=== PATIENT | female | born 1995 | race Caucasian/White ===

== ENCOUNTER 2019-01-31 09:02 | Outpatient (CLI) | payer OTHER | END 2019-01-31 09:12 | disposition home or self-care (01) | LOC: SONOGRAMA 09:02 | DX: E04.1 Nontoxic single thyroid nodule (principal) ==

== ENCOUNTER 2019-06-05 07:54 | Outpatient (CLI) | payer OTHER | END 2019-06-05 09:33 | disposition home or self-care (01) | LOC: SONOGRAMA 07:54 | DX: E04.1 Nontoxic single thyroid nodule (principal) ==

== ENCOUNTER 2020-10-25 12:00 | Emergency (ER) | payer OTHER ==
[~2020-10-25] VITALS: Ht 165.1 cm; Wt 77.1 kg
[2020-10-25] MEDS ORDERED: SYNTHROID50 MCG (12:06)
[2020-10-25] MEDS ORDERED: NORFLEX100MG PO (13:58)
[2020-10-25] MEDS ORDERED: KETO10TA2 PO (13:58)
== END 2020-10-25 14:03 | disposition home or self-care (01) ==
LOC: ER 12:00
DX: M54.6 Pain in thoracic spine (principal); M54.5 Low back pain

== ENCOUNTER 2021-08-19 11:38 | Emergency (ER) | payer OTHER ==
[~2021-08-19] VITALS: Ht 165.1 cm; Wt 86.6 kg
[~2021-08-19 11:38] MED LIST: KETO10TA2 PO; NORFLEX100MG PO; SYNTHROID50 MCG
[2021-08-19] MEDS ORDERED: SYNTHROID88 MCG PO (12:01)
[2021-08-19] MEDS ORDERED: PRENATAL + DHA1 EAC1 (12:01)
[2021-08-19] MEDS ORDERED: ZITHROMAX500 MG PO (16:36)
[2021-08-19] MEDS ORDERED: MUCINEX DM ER1 EAC1 PO (16:36)
== END 2021-08-19 17:36 ==
LOC: ER 11:38
DX: J06.9 Acute upper respiratory infection, unspecified (principal); Z03.818 Encounter for observation for suspected exposure to other biological agents ruled out

== ENCOUNTER 2021-09-29 06:17 | Outpatient (CLI) | payer OTHER ==
[~2021-09-29 06:17] MED LIST changes: +MUCINEX DM ER1 EAC1 PO; +PRENATAL + DHA1 EAC1; +SYNTHROID88 MCG PO; +ZITHROMAX500 MG PO
== END 2021-09-29 06:18 | disposition home or self-care (01) ==
LOC: LAB 06:17
PROVIDERS: ATTEND Obstetrics & Gynecology
DX: E03.8 Other specified hypothyroidism (principal); C73 Malignant neoplasm of thyroid gland; O09.72 Supervision of high risk pregnancy due to social problems, second trimester

== ENCOUNTER → 2021-12-01 08:32 | Outpatient (CLI) | payer OTHER | END | disposition home or self-care (01) | LOC: LAB 08:32 | PROVIDERS: ATTEND Obstetrics & Gynecology | DX: Z34.83 Encounter for supervision of other normal pregnancy, third trimester (principal) ==

== ENCOUNTER 2021-12-03 13:00 | Outpatient (CLI) | payer OTHER | END 2021-12-03 13:07 | disposition home or self-care (01) | LOC: SONOGRAMA 13:00 | DX: E04.1 Nontoxic single thyroid nodule (principal); C73 Malignant neoplasm of thyroid gland ==

== ENCOUNTER 2022-01-09 09:48 | Outpatient (CLI) | payer OTHER | END 2022-01-09 10:28 | disposition home or self-care (01) | LOC: NST 09:48 | PROVIDERS: ATTEND Obstetrics & Gynecology Maternal & Fetal Medicine | DX: Z34.83 Encounter for supervision of other normal pregnancy, third trimester (principal) ==

== ENCOUNTER 2022-01-13 08:56 | Outpatient (CLI) | payer OTHER | END 2022-01-13 09:34 | disposition home or self-care (01) | LOC: NST 08:56 | PROVIDERS: ATTEND Obstetrics & Gynecology | DX: Z34.83 Encounter for supervision of other normal pregnancy, third trimester (principal) ==

== ENCOUNTER 2022-04-08 11:49 | Outpatient (CLI) | payer OTHER | END 2022-04-08 12:06 | disposition home or self-care (01) | LOC: EDSEX 11:49 → EDBD 11:49 → LAB 11:49 | PROVIDERS: ATTEND Pediatrics | DX: R19.7 Diarrhea, unspecified (principal) ==

== ENCOUNTER 2024-08-17 13:54 | Emergency (ER) | payer OTHER ==
[~2024-08-17] VITALS: Ht 83.8 cm; Wt 10.9 kg
== END 2024-08-17 20:00 | disposition home or self-care (01) ==
LOC: EMR PED 13:56 → ER 13:56 → EMR PED 16:02
DX: J00 Acute nasopharyngitis [common cold] (principal); Z20.822 Contact with and (suspected) exposure to COVID-19; Z91.018 Allergy to other foods

== ENCOUNTER 2025-08-03 19:32 | Emergency (ER) | payer OTHER ==
[~2025-08-03] VITALS: Ht 88.9 cm; Wt 12.2 kg
[2025-08-03] MEDS ORDERED: 0.9 % SODIUM CHLORIDE 500 ML IV ONE (21:00)
[2025-08-03] MEDS ORDERED: 0.9 % SODIUM CHLORIDE 500 ML IV SCH (21:00)
[2025-08-03] MEDS ORDERED: ACETAMINOPHEN 160MG/5 ML BLIST.PACK PO PRN (21:00)
[2025-08-03] MEDS ORDERED: CEFTRIAXONE SODIUM 1,000 MG VIAL IV ONE (21:15)
[2025-08-03 22:29] LABS: BASO % 0.2 % (0.1-1.2); EOS # 0.00 (0.04-0.54); EOS % 0.0 % (0.7-7.0); LYMPH # 2.05 (1.18-3.74); LYMPH % 16.7 % (19.3-53.1); MEAN PLATELET VOLUME 9.70 fl (9.4-12.4); MONO # 1.20 (0.24-0.82); MONO % 9.8 % (4.7-12.5); NEUT # 8.95 (1.56-6.13); NEUT % 72.9 % (34.0-71.1); RED CELL DISTRIBUTION WIDTH 13.2 % (11.6-14.4)
[2025-08-03 23:40] LABS: COVID-19 AG NEGATIVE (NEGATIVE)
[2025-08-03 23:52] LABS: URINE APPEARANCE Clear; URINE BACTERIA 29.9 uL (0.0-1933); URINE BILIRRUBIN Negative (NEGATIVE); URINE BLOOD Negative; URINE COLOR Yellow; URINE EPITHELIAL CELLS 2.4 uL (0.0-38.8); URINE GLUCOSE Negative (NEGATIVE); URINE LEUKOCYTE Negative; URINE NITRATE Negative; URINE PROTEIN Negative (NEGATIVE); URINE UROBILINOGEN 1.0 E.U./dl; URINE WBC 12.1 uL (0.0-23.2)
[2025-08-03 23:57] LABS: URINE CAST 0.00 uL (0.0-1.40); URINE KETONE 40 (NEGATIVE); URINE RBC 1.6 uL (0.0-20.8)
[2025-08-04 08:34] LABS: BASO % 0.1 % (0.1-1.2); EOS # 0.00 (0.04-0.54); EOS % 0.0 % (0.7-7.0); LYMPH # 2.77 (1.18-3.74); LYMPH % 23.8 % (19.3-53.1); MEAN PLATELET VOLUME 10.20 fl (9.4-12.4); MONO # 1.32 (0.24-0.82); MONO % 11.3 % (4.7-12.5); NEUT # 7.50 (1.56-6.13); NEUT % 64.5 % (34.0-71.1); RED CELL DISTRIBUTION WIDTH 13.1 % (11.6-14.4)
[2025-08-04] MEDS ORDERED: CEFTRIAXONE SODIUM 1,000 MG VIAL IV ONE (09:15)
[2025-08-04] MEDS ORDERED: AUGMENTIN600 MG/5 M PO (10:49)
== END 2025-08-04 12:14 | disposition home or self-care (01) ==
LOC: ER 19:32 → EMR PED 19:57
PROVIDERS: General Practice; Pediatrics
DX: J03.80 Acute tonsillitis due to other specified organisms (principal); Z91.018 Allergy to other foods; R50.9 Fever, unspecified; Z20.822 Contact with and (suspected) exposure to COVID-19

== ENCOUNTER 2025-08-14 20:58 | Emergency (ER) | payer OTHER ==
[~2025-08-14] VITALS: Ht 91.4 cm; Wt 12.7 kg
[~2025-08-14 20:58] MED LIST changes: +AUGMENTIN600 MG/5 M PO
[2025-08-14] MEDS ORDERED: METHYLPREDNISOLONE SOD SUCC 40 MG VIAL IV STA (21:39)
[2025-08-14] MEDS ORDERED: METHYLPREDNISOLONE SOD SUCC 40 MG VIAL ONE (21:41)
[2025-08-14] MEDS ORDERED: CEFTRIAXONE SODIUM 1,000 MG VIAL ONE (21:41)
[2025-08-14] MEDS ORDERED: CEFTRIAXONE SODIUM 1,000 MG VIAL IV ONE (21:45)
[2025-08-14] MEDS ORDERED: 0.9 % SODIUM CHLORIDE 500 ML IV SCH (21:45)
[2025-08-15] MEDS ORDERED: CEPHALEXIN125 MG/5 M PO (02:20)
[2025-08-15] MEDS ORDERED: CEFTRIAXONE SODIUM 1,000 MG VIAL ONE (03:08)
[2025-08-15] MEDS ORDERED: CEFTRIAXONE SODIUM 1,000 MG VIAL IM STA (03:10)
[2025-08-15] MEDS ORDERED: LIDOCAINE HCL 1% 10ML VIAL ONE (03:10)
== END 2025-08-15 03:22 ==
LOC: ER 20:58 → EMR PED 21:02
DX: N47.7 Other inflammatory diseases of prepuce (principal); N48.89 Other specified disorders of penis; Z91.018 Allergy to other foods